=== PATIENT | male | born 1990 | race Caucasian/White ===

== ENCOUNTER 2022-03-06 01:48 | Emergency (ER) | payer OTHER ==
[2022-03-06 01:55] VITALS: BP 130/80; PULSE 66; RESP 14; TEMP 97.9; BMI 24.4
[2022-03-06] MEDS ORDERED: KETOROLAC TROMETHAMINE 30 MG/1 ML VIAL IM ONE (02:34)
[2022-03-06] MEDS ORDERED: KETOROLAC TROMETHAMINE 30 MG/1 ML VIAL ONE (02:37)
== END 2022-03-06 02:44 | disposition home or self-care (01) ==
LOC: FER 01:48
PROC: 3E023GC Introduction of Other Therapeutic Substance into Muscle, Percutaneous Approach (ICD-10-PCS; principal; 2022-03-06)
DX: R07.1 Chest pain on breathing (principal)
CPT/HCPCS: 71046-TC-FY; 71101-TC-LT-FY; 99284-25